=== PATIENT | male | born 1965 | race Caucasian/White ===

== ENCOUNTER 2018-09-11 03:15 | Emergency (ER) | payer OTHER ==
--- NOTE | 2018-09-11 04:07 | ED Physician Documentation ---
Fall - HISTORIAN Historian: paramedics, other ([facility] records) - HPI Stated Complaint: fall Chief Complaint: Fall Additional Information: Patient presents to ED via [facility]. Patient had arrived to nursing from [facility] yesterday afternoon. Since his arrival to the [facility] he has fallen 5 times sustaining abrasions to his head, right wrist and right leg. His last fall tonight resulted in striking his head. Patient has a history of alcoholic liver cirrhosis, seizure disorder, DM2, hepatic encephalopathy, chronic pancreatitis, and HTN. When he arrived to the [facility] yesterday he had dysarthria, right sided weakness/with mild atrophy (history stroke??). He was sent from the [facility] because they could not assess were the bleeding was coming from on his head due to the room being dark. Onset: today, yesterday Where: other ([facility]) Context: other (unknown) r: moderate Associated Symptoms:: no loss of consciousness Location of Pain/Injury: head Injury to Right Extremity: wrist, ankle - ROS CONST: denies: fever CVS/RESP: denies: chest pain, shortness of breath Comment: ROS difficult to obtain due to dysarthria - PAST HX Past History: diabetes Type 2 (hepatitc encephalopy, seizure disorder, HTN, COPD, alcoholic liver cirrhosis, chronic pancreatitis) Allergies/Adverse Reactions: Allergies Allergy/AdvReac Type Severity Reaction Status Date / Time No Known Allergies Allergy Verified 09/11/18 03:28 Home Medications: Ambulatory Orders Medication Instructions Recorded Acetaminophen [Tylenol] 325 mg PO PRN 09/11/18 Albuterol Sulfate [Proair HFA] 1 inh IH 09/11/18 Albuterol Sulfate [Proair 90 mcg IH QID 09/11/18 Respiclick] Calcium Carbonate [Calcium] 500 mg PO TID 09/11/18 Cholecalciferol [Vitamin D-3] 1,000 units PO DAILY 09/11/18 Glucagon HCl 1 mg IM PRN 09/11/18 Haloperidol Decanoate [Haldol] 5 mg IM PRN 09/11/18 Insulin Glargine,Hum.rec.anlog 10 units SQ AM 09/11/18 [Lantus] Insulin Lispro 3Ml [Humalog] See Protocol SQ HS 09/11/18 Insulin Lispro [Humalog] 10 units SQ TID 09/11/18 LORazepam [Ativan] 2 mg IM PRN 09/11/18 Levetiracetam [Keppra] 750 mg PO BID 09/11/18 Levetiracetam [Keppra] 750 mg PO Q12 09/11/18 Lipase/Protease/Amylase [Pancreaze 1 cap PO TID 09/11/18 10,500 Unit Cap] Magnesium Oxide [Magnesium] 400 mg PO BID 09/11/18 Oxycodone HCl/Acetaminophen 1 each PO PRN 09/11/18 [Percocet 10/325] Pantoprazole Sodium 40 mg PO Q12 09/11/18 Paroxetine HCl [Paxil] 40 mg PO DAILY 09/11/18 QUEtiapine FUMARATE [Seroquel] 12.5 mg PO PM 09/11/18 QUEtiapine FUMARATE [Seroquel] 25 mg PO HS 09/11/18 Thiamine HCl 100 mg PO DAILY 09/11/18 Tiotropium [place] [Spiriva] 1 inh PO DAILY 09/11/18 amLODIPine BESYLATE [Norvasc] 10 mg PO DAILY 09/11/18 - SOCIAL HX Smoking History: non-smoker Alcohol Use: none Drug Use: none - FAMILY HX Family History: other (unknown) - VITAL SIGNS Vital Signs: Vital Signs Temp Pulse Resp BP Pulse Ox 97.6 F 106 H 20 152/82 100 09/11/18 03:15 09/11/18 03:15 09/11/18 03:15 09/11/18 03:15 09/11/18 03:15 - REVIEWED ASSESSMENTS Nursing Assessment Reviewed: Yes Vitals Reviewed: Yes ED Results Lab/Radiology - Lab Results Lab Results: UA negative Urine drug screen positive for THC, PCP, benzos CBC within normal limits CMP mildly elevated LFT, consistent with liver cirrhosis - Radiology Radiology Impressions: CT head without contrast History: Fall, head injury Technique: Images through the brain were obtained without contrast. Findings: Examination is limited by suboptimal positioning and lack of patient cooperation. There is no large mass, midline shift, significant hydrocephalus or a large hemorrhage. The ventricles and cortical sulci are enlarged, consistent with atrophy. No large extraaxial fluid collection is identified. Impression: Cerebral atrophy. Limited study. No gross evidence of acute abnormality. Electronically signed on Sep 11, 2018 4:47:15 AM CDT by: Celestine Jose - Orders Orders: ED Orders Category Date Time Status Place IV Lock 1T Care 09/11/18 03:[address] BRAIN W/O CONTRAST Stat Exams 09/11/18 Ordered AMMONIA Routine Lab 09/11/18 Ordered CBC/PLATELET/DIFF Routine Lab 09/11/18 Ordered CMP Routine Lab 09/11/18 Ordered URINALYSIS Routine Lab 09/11/18 Ordered Urine drug screen [DRUG SCREEN URINE MEDICAL ONLY] Lab 09/11/18 Ordered Routine Fall Physical Exam - Physical Exam General Appearance: no acute distress, alert Head: non-tender Neck: painless ROM Eye: TAMMIE ENT: nml external inspection Resp/CVS: chest non-tender, breath sounds nml Abdomen: soft, normal bowel sounds, non-tender Rectal/Genital: other (deferred) Neuro: CN's nml as tested (awake, alert, answers questions but has difficulty with speech. Follows commands. upper extremity strength R 2, L 5. Lower extremity strength R 3, L5) Skin: color nml, no rash Back: no CVA tenderness Extremities: atraumatic, hips non-tender, no pedal edema Joint: nml ROM - Miguel Coma Score Eyes Open: Spontaneous Speech: Incomprehensible Motor: Obeys Commands Discharge Clincal Impression: Skin tear Fall Qualifiers: Encounter type: initial encounter Qualified Code(s): W19.XXXA - Unspecified fall, initial encounter Referrals: Elliott Garcia MD [Primary Care Provider] - 2 Days Condition: Stable Disposition: 04 XFER [facility] Decision to Admit: NO Date of Decison to Admit: 09/11/18 Decision Time: 05:25
[2018-09-11] MEDS ORDERED: 0.9 % SODIUM CHLORIDE 500 ML IV ONE (04:26)
[2018-09-11] MEDS ORDERED: HYDROcodone /APAP 5/325 1 EACH TABLET PO ONE (04:41)
[2018-09-11 04:57] LABS: EOSINOPHILS % 2.3 % (0.0-6.8); MEAN CORPUSCULAR HEMOGLOBIN 32.5 pg (28.0-34.0); MONOCYTES % 8.8 % (0.0-11.0)
[2018-09-11 04:58] LABS: BASOPHILS % 0.4 (0.0-1.5)
[2018-09-11 05:01] LABS: eGFR (Non-African) > 60
--- NOTE | 2018-09-11 05:04 | Diagnostic Imaging Report ---
LANNY PERAZA [facility] [address] [facility] [address] [place] [phone] [id number] Report Submission Date: Sep 11, 2018 4:47:15 AM CDT Patient Study Name: JUANITA GALLO Date: Sep 11, 2018 4:27:38 AM CDT Modality Type: CT\SR Gender: M Description: CT BRAIN W/O CONTRAST : 63 Institution: [facility] Physician: LANNY PERAZA CT head without contrast History: Fall, head injury Technique: Images through the brain were obtained without contrast. Findings: Examination is limited by suboptimal positioning and lack of patient cooperation. There is no large mass, midline shift, significant hydrocephalus or a large hemorrhage. The ventricles and cortical sulci are enlarged, consistent with atrophy. No large extraaxial fluid collection is identified. Impression: Cerebral atrophy. Limited study. No gross evidence of acute abnormality. Electronically signed on Sep 11, 2018 4:47:15 AM CDT by: Celestine WILLARD
[2018-09-11 06:04] VITALS: BP 129/88
[2018-09-11 07:50] LABS: APPEARANCE,URINE CLEAR (CLEAR); CANNABINOIDS NON NEGATIVE ng/mL (< 50); COLOR,URINE YELLOW (YELLOW); METHYLENEDIOXYMETHAMPHETAMINE NEGATIVE ng/mL (<500); OCCULT BLOOD,URINE NEGATIVE (NEGATIVE); PH URINE 5.5 (5.0 - 8.0); UROBILINOGEN URINE 0.2 Eu (0.2-1.0)
== END 2018-09-11 05:45 ==
LOC: ED 03:15
DX: S09.90XA Unspecified injury of head, initial encounter (principal); W19.XXXA Unspecified fall, initial encounter; Y92.129 Unspecified place in nursing home as the place of occurrence of the external cause; Y93.9 Activity, unspecified; Y99.9 Unspecified external cause status; T14.8XXA Other injury of unspecified body region, initial encounter
CPT/HCPCS: 70450; 80053; 80377; 81002; 82140; 85025; A9270; J7060; 96365; 99284; G0481; S1016

== ENCOUNTER 2019-01-23 12:37 | Emergency (ER) | payer OTHER ==
--- NOTE | 2019-01-23 12:53 | ED Physician Documentation ---
General Adult - HISTORIAN Historian: patient, paramedics - [facility] Chief Complaint: General Adult Further Comments: yes (53 year old male patient sent in from [place] after patient was found to have a blood sugar of 19, glucagon was administered. Blood sugar came up to 74. On arrival EMS administered 250cc bag of D10. On arrival to [facility], patient's blood sugar was 141. Patient awake, alert and able to answer all questions. States he only ate 1 egg and 1 piece of toast for breakfast and was given his morning insulin doses.) - ROS CONST: no problems EYES/ENT: none CVS/RESP: none GI/: none MS/SKIN/LYMPH: none NEURO/PSYCH: denies: headache - PAST HX Past History: COPD, hypertension, other (seizures, HLD, alcoholic liver disease, GERD) Allergies/Adverse Reactions: Allergies Allergy/AdvReac Type Severity Reaction Status Date / Time No Known Allergies Allergy Verified 01/23/19 12:54 Home Medications: Ambulatory Orders Medication Instructions Recorded Acetaminophen [Tylenol] 325 mg PO PRN 09/11/18 Albuterol Sulfate [Proair HFA] 1 inh IH 09/11/18 Albuterol Sulfate [Proair 90 mcg IH QID 09/11/18 Respiclick] Calcium Carbonate [Calcium] 500 mg PO TID 09/11/18 Cholecalciferol [Vitamin D-3] 1,000 units PO DAILY 09/11/18 Glucagon HCl 1 mg IM PRN 09/11/18 Haloperidol Decanoate [Haldol] 5 mg IM PRN 09/11/18 Insulin Glargine,Hum.rec.anlog 10 units SQ AM 09/11/18 [Lantus] Insulin Lispro 3Ml [Humalog] See Protocol SQ HS 09/11/18 Insulin Lispro [Humalog] 10 units SQ TID 09/11/18 LORazepam [Ativan] 2 mg IM PRN 09/11/18 Levetiracetam [Keppra] 750 mg PO BID 09/11/18 Levetiracetam [Keppra] 750 mg PO Q12 09/11/18 Lipase/Protease/Amylase [Pancreaze 1 cap PO TID 09/11/18 10,500 Unit Cap] Magnesium Oxide [Magnesium] 400 mg PO BID 09/11/18 Oxycodone HCl/Acetaminophen 1 each PO PRN 09/11/18 [Percocet 10/325] Pantoprazole Sodium 40 mg PO Q12 09/11/18 Paroxetine HCl [Paxil] 40 mg PO DAILY 09/11/18 QUEtiapine FUMARATE [Seroquel] 12.5 mg PO PM 09/11/18 QUEtiapine FUMARATE [Seroquel] 25 mg PO HS 09/11/18 Thiamine HCl 100 mg PO DAILY 09/11/18 Tiotropium [place] [Spiriva] 1 inh PO DAILY 09/11/18 amLODIPine BESYLATE [Norvasc] 10 mg PO DAILY 09/11/18 - SOCIAL HX Smoking History: cigarettes Alcohol Use: other (history of ETOH abuse) - FAMILY HX Family History: No - VITAL SIGNS Vital Signs: Vital Signs Temp Pulse Resp BP Pulse Ox 129/88 09/11/18 06:00 - REVIEWED ASSESSMENTS Nursing Assessment Reviewed: Yes Vitals Reviewed: Yes General Adult Physical Exam - PHYSICAL EXAM GENERAL APPEARANCE: [id number] N EENT: eye inspection normal, TAMMIE RESPIRATORY: no resp distress, chest non-tender, breath sounds normal CVS: reg rate & rhythm, heart sounds normal, equal pulses, no murmur, no gallop, PMI nml, no JVD, no friction rub, 24 ABDOMEN: soft, no organomegaly, normal bowel sounds, no abdominal bruit, no distension SKIN: normal color, warm/dry, NR, INT, PAL, DR EXTREMITIES: non-tender, normal range of motion, no evidence of injury, no edema, J, [employer] NEURO: oriented X3, CN's nml as tested, motor nml, sensation nml, mood/affect nml Discharge Clincal Impression: Hypoglycemia Referrals: Elliott Garcia MD [Primary Care Provider] - 2 Days Additional Instructions: Continue all current orders. Pick double the patient's portions for breakfast for the next 7 days. Condition: Stable Disposition: 01 HOME, SELF-CARE Decision to Admit: NO Decision Time: 13:20
[2019-01-23] MEDS ORDERED: IBUPROFEN 400 MG TABLET PO ONE (13:31)
[2019-01-23 14:06] VITALS: BP 120/78
== END 2019-01-23 14:02 | disposition home or self-care (01) ==
LOC: ED 12:37
DX: E16.2 Hypoglycemia, unspecified (principal)
CPT/HCPCS: 99282; 99283